=== PATIENT | female | born 1945 | race Caucasian/White ===

== ENCOUNTER → 2017-01-19 09:04 | Outpatient (CLI) | payer MEDICARE, OTHER ==
[2014-09-30 07:14] VITALS: BMI 29.2
[~2017-01-19 09:04] MED LIST: BAYER CHEWABLE81 MG PO; CALCIUM 600 +1 EAC3 PO; K-PHOS ORIGINA500 MG PO; VITAMIN D31000 UNIT PO; ZOCOR20 MG PO
== END ==
LOC: D.MAMMO 09:04
DX: Z12.31 Encounter for screening mammogram for malignant neoplasm of breast (principal)

== ENCOUNTER 2017-05-16 04:38 | Emergency (ER) | payer MEDICARE, OTHER ==
[2014-09-30 07:14] VITALS: BMI 29.2
== END 2017-05-16 06:24 | disposition home or self-care (01) ==
LOC: D.ER 04:38
DX: R50.9 Fever, unspecified (principal); J20.9 Acute bronchitis, unspecified; J11.1 Influenza due to unidentified influenza virus with other respiratory manifestations; K21.9 Gastro-esophageal reflux disease without esophagitis

== ENCOUNTER → 2018-04-17 17:19 | Outpatient (CLI) | payer MEDICARE, OTHER ==
[2014-09-30 07:14] VITALS: BMI 29.2
== END | disposition home or self-care (01) ==
LOC: D.MAMMO 09:45
DX: Z12.31 Encounter for screening mammogram for malignant neoplasm of breast (principal)